=== PATIENT | female | born 1950 | race Caucasian/White ===

== ENCOUNTER 2024-02-24 11:19 | Emergency (ER) | payer MEDICARE, OTHER, SELFPAY ==
[2024-02-24 11:19] VITALS: BMI 30.5
[2024-02-24 11:26] VITALS: BP 194/100
[2024-02-24 12:00] VITALS: BP 143/84
--- NOTE | 2024-02-24 12:36 | ED.GENMED ---
History of Present Illness
General
Chief Complaint: Fall
Time Seen by Provider: 02/24/24 11:30
History of Present Illness
History of Present Illness:
73-year-old female presents to the emergency department for evaluation of stroke. Stroke process. Concerned that she cannot range the elbow fully today. Denies any shoulder pain or back pain. Does not take blood thinners.
Past History
Past History
ED Past Medical History: None
ED Past Surgical History: None
Social History
Tobacco: Non-smoker
Alcohol: None
Drug: None
Living: with family
Review of Systems
Review of Systems
Allergies reviewed?: Yes
All Other Systems: ROS reviewed and negative except as documented in HPI and ROS
Phy Exam
Physical Exam
Physical Exam:
GEN: Well appearing, NAD, WDWN
HEENT: Ecchymosis and minor hematoma to the right temporal skull, oral mucosa moist, no scleral icterus, no nasal congestion
Cardiac: Regular rate
Lung: No respiratory distress, no tachypnea
MSK: No gross deformity or injuries. Minor swelling to the right elbow, range of motion limited secondary to pain particularly supination
Skin: Good color, no pallor or jaundice, no rashes
Neuro: AO x3; CN II-XII grossly intact. BUE strength 5/5 in all trevino, sensation intact and symmetric. BLE strength 5/5 in all trevino, sensation intact and symmetric
Psych: Calm, cooperative
Course
Orders/Labs/Results
Orders:
Orders
02/24/24 11:50
CR Elbow - Right Min 3 Views Urgent
Comment:
Reason For Exam: fall
Vital Signs
Initial and Last Documented VS:
Initial Vital Signs
Temp Pulse Resp BP Pulse Ox
98.2 F 90 18 194/100 97
02/24/24 11:26 02/24/24 11:26 02/24/24 11:26 02/24/24 11:26 02/24/24 11:26
Last Documented Vital Signs
Temp Pulse Resp BP Pulse Ox
98.1 F 74 18 143/84 99
02/24/24 12:00 02/24/24 12:00 02/24/24 12:00 02/24/24 12:00 02/24/24 12:00
MDM/Problems Addressed
MDM/Problems Addressed:
Patient is neurologically intact and does not take any anticoagulants or antiplatelets, given there is been more than 12 hours since the injury do not see any indication for CT of the head. Minimal x-rays revealed a minimally depressed radial head
fracture, placed in a sling and recommend close outpatient orthopedic follow-up
*Critical Care Note
Total Time (30-74mins, 75-104mins- exclusive of procedures): Not Applicable
ED Attending Note
-
Portions of this chart may have been created with voice recognition software.� Occasional wrong word or��sound alike� substitutions may have occurred due to the inherent limitations of voice recognition software.
Discharge Plan
Departure
Patient Disposition: Home (Routine Discharge)
Date of Disposition: 02/24/24
Time of Disposition: 12:37
Patient with high blood pressure during this ER visit?: No
Discharge Problem:
Closed fracture of head of right radius
Instructions: Elbow Fracture, Adult ED
Prescriptions:
No Action
carvedilol 3.125 MG tablet
3.125 mg PO BID
levothyroxine 50 MCG tablet
50 mcg PO DAILY
aspirin 81 MG tablet,chewable
81 mg PO DAILY
lisinopril 5 MG tablet
5 mg PO DAILY
hydrocodone-acetaminophen 1 TABLET tablet
1 tab PO Q4HPRN PRN (Reason: severe pain) Qty: 20 0RF
penicillin V potassium 500 MG tablet
500 mg PO Q6 Qty: 39 0RF
Referrals:
Jared Tse MD [Active] -
NONE,* [Family Provider] -
Activity Restrictions/Additional Instructions:
Wear the sling until you follow up with Orthopedics
Remove the sling for one hour a day to allow the elbow to stretch
Ice often to reduce pain
Interventions
Interventions:
*Risk Screen - Suicide Last Done: 02/24/24 11:26
*General Assessment Last Done: 02/24/24 11:26
*Neglect/Abuse Screening Last Done: 02/24/24 11:26
ED- Fall Risk Assessment Last Done: 02/24/24 11:35
*Nursing Disposition Last Done: 02/24/24 12:47
ED-Musculoskeletal Assessment Last Done: 02/24/24 11:35
ED- Neurological Assessment Last Done: 02/24/24 11:35
ED-Skin Assessment Last Done: 02/24/24 11:35
Discharge Date and Time
Discharge Date/Time: 02/24/24 12:47
Print Language: UKRAINIAN
== END 2024-02-24 12:47 | disposition home or self-care (01) ==
LOC: EMR 11:19
PROVIDERS: EMERGENCY PHYSICIAN Student in an Organized Health Care Education/Training Program
DX: S52.121A Displaced fracture of head of right radius, initial encounter for closed fracture (principal); W19.XXXA Unspecified fall, initial encounter
CPT/HCPCS: 99283; 73080